=== PATIENT | female | born 1955 | race Caucasian/White ===

== ENCOUNTER 2023-10-19 11:56 | Outpatient (RCR) | payer MEDICARE, SELFPAY | END 2023-10-19 14:18 | disposition home or self-care (01) | LOC: RPT 11:56 | PROVIDERS: ATTENDING PHYSICIAN Orthopaedic Surgery Orthopaedic Surgery of the Spine; PRIMARYCARE PHYSICIAN Family Medicine | DX: M54.51 Vertebrogenic low back pain (principal) | CPT/HCPCS: 97010; 97110; 97112 ==

== ENCOUNTER → 2024-01-19 11:21 | Outpatient (REF) | payer MEDICARE, SELFPAY | LOC: HWRAD 11:21 | PROVIDERS: ATTENDING PHYSICIAN Obstetrics & Gynecology; FAMILY PHYSICIAN Family Medicine | DX: N95.0 Postmenopausal bleeding (principal) | CPT/HCPCS: 76830; 76856 ==

== ENCOUNTER → 2024-01-29 14:24 | Outpatient (REF) | payer MEDICARE, SELFPAY ==
[2024-01-29 10:28] LABS: ALT (SGPT) 29 U/L (0-35); AST (SGOT) 23 U/L (14-36); Albumin 4.1 g/dl (3.5-5.0); Alkaline Phosphatase 86 U/L (38-126); Blood Urea Nitrogen 20 mg/dl (7-17); Carbon Dioxide 26 mmol/L (22-30); Chloride 103 mmol/L (98-107); Glucose 224 mg/dl (70-99); Potassium 4.6 mmol/L (3.5-5.1); Sodium 139 mmol/L (135-145); Total Bilirubin 0.6 mg/dl (0.2-1.3); Total Protein 6.1 g/dl (6.3-8.2); eGFR 41.24
== END ==
LOC: OIDL 14:24
PROVIDERS: ATTENDING PHYSICIAN Internal Medicine Hematology & Oncology
DX: R93.7 Abnormal findings on diagnostic imaging of other parts of musculoskeletal system (principal)
CPT/HCPCS: 80053

== ENCOUNTER → 2024-02-26 07:05 | Outpatient (REF) | payer MEDICARE, SELFPAY | LOC: MRI 3T 07:05 | PROVIDERS: ATTENDING PHYSICIAN Physician Assistant Surgical; FAMILY PHYSICIAN Family Medicine | DX: M47.816 Spondylosis without myelopathy or radiculopathy, lumbar region (principal) | CPT/HCPCS: 72148 ==

== ENCOUNTER → 2024-07-28 11:25 | Outpatient (REF) | payer MEDICARE, SELFPAY ==
[2024-07-28 11:27] LABS: % Basophils 0.1 % (0-2); % Eosinophils 1.6 % (0-6); % Immature Granulocytes 0.2 % (0-0.5); % Lymphocytes 10.4 % (20.5-51.1); % Monocytes 6.8 % (1.7-9.3); % Neutrophils 80.9 % (42.2-75.2); Absolute Eosinophils 0.1 10^3/uL (0-0.7); Absolute Lymphocytes 0.8 10^3/uL (1.2-3.4); Absolute Monocytes 0.6 10^3/uL (0.1-0.6); Absolute Neutrophils 6.5 10^3/uL (1.4-6.5); Hematocrit 37.8 % (37.0-47.0); Hemoglobin 12.3 g/dL (12.0-16.0); Mean Corp Hgb Conc. 32.5 g/dL (33.0-37.0); Mean Corpuscular Hgb 29.6 pg (27.0-31.0); Mean Corpuscular Volume 91.1 fL (81.0-99.0); Mean Platelet Volume 9.1 fL (7.4-10.4); Platelet Count 172 10^3/uL (130-400); Red Blood Cell Count 4.15 10^6/uL (4.20-5.40); White Blood Cell Count 8.1 10^3/uL (4.8-10.8)
== END ==
LOC: OIDL 11:25
PROVIDERS: ATTENDING PHYSICIAN Internal Medicine Hematology & Oncology
DX: R93.7 Abnormal findings on diagnostic imaging of other parts of musculoskeletal system (principal); D63.1 Anemia in chronic kidney disease; C90.00 Multiple myeloma not having achieved remission
CPT/HCPCS: 85025

== ENCOUNTER → 2024-09-01 10:53 | Outpatient (REF) | payer MEDICARE, SELFPAY ==
[2024-09-01 11:57] LABS: % Basophils 0.3 % (0-2); % Eosinophils 1.2 % (0-6); % Immature Granulocytes 0.5 % (0-0.5); % Lymphocytes 11.6 % (20.5-51.1); % Monocytes 9.4 % (1.7-9.3); Absolute Eosinophils 0.1 10^3/uL (0-0.7); Absolute Lymphocytes 0.8 10^3/uL (1.2-3.4); Absolute Monocytes 0.6 10^3/uL (0.1-0.6); Absolute Neutrophils 5.1 10^3/uL (1.4-6.5); Hematocrit 40.2 % (37.0-47.0); Mean Corp Hgb Conc. 32.3 g/dL (33.0-37.0); Mean Corpuscular Hgb 28.7 pg (27.0-31.0); Mean Corpuscular Volume 88.7 fL (81.0-99.0); Mean Platelet Volume 9.5 fL (7.4-10.4); Nucleated Red Blood Cells % 0 %; Platelet Count 187 10^3/uL (130-400); Red Blood Cell Count 4.53 10^6/uL (4.20-5.40); Red Cell Dist. Width 14.4 % (11.5-14.5); White Blood Cell Count 6.6 10^3/uL (4.8-10.8)
[2024-09-01 12:34] LABS: ALT (SGPT) 25 U/L (0-35); AST (SGOT) 23 U/L (14-36); Albumin 4.4 g/dl (3.5-5.0); Alkaline Phosphatase 94 U/L (38-126); Blood Urea Nitrogen 23 mg/dl (7-17); Calcium 9.1 mg/dl (8.4-10.2); Carbon Dioxide 23 mmol/L (22-30); Chloride 102 mmol/L (98-107); Glucose 243 mg/dl (70-99); Potassium 4.9 mmol/L (3.5-5.1); Sodium 141 mmol/L (135-145); Total Bilirubin 0.4 mg/dl (0.2-1.3); Total Protein 6.6 g/dl (6.3-8.2); eGFR 45.07
== END ==
LOC: REG 10:53
PROVIDERS: ATTENDING PHYSICIAN Internal Medicine Hematology & Oncology; FAMILY PHYSICIAN Family Medicine
DX: R93.7 Abnormal findings on diagnostic imaging of other parts of musculoskeletal system (principal); D63.1 Anemia in chronic kidney disease; C90.00 Multiple myeloma not having achieved remission; D63.0 Anemia in neoplastic disease; D50.9 Iron deficiency anemia, unspecified; D80.1 Nonfamilial hypogammaglobulinemia; M87.88 Other osteonecrosis, other site
CPT/HCPCS: 36415; 80053; 85025

== ENCOUNTER → 2024-10-03 08:46 | Outpatient (REF) | payer MEDICARE, SELFPAY | LOC: WDC 08:46 | PROVIDERS: ATTENDING PHYSICIAN Obstetrics & Gynecology | DX: Z12.31 Encounter for screening mammogram for malignant neoplasm of breast (principal) | CPT/HCPCS: 77063; 77067 ==

== ENCOUNTER → 2024-11-11 10:31 | Outpatient (REF) | payer MEDICARE, SELFPAY | LOC: RAD 10:31 | PROVIDERS: ATTENDING PHYSICIAN Nurse Practitioner Adult Health; FAMILY PHYSICIAN Family Medicine | DX: R93.7 Abnormal findings on diagnostic imaging of other parts of musculoskeletal system (principal); D63.1 Anemia in chronic kidney disease; C90.00 Multiple myeloma not having achieved remission; D63.0 Anemia in neoplastic disease; D50.9 Iron deficiency anemia, unspecified; D80.1 Nonfamilial hypogammaglobulinemia; M87.88 Other osteonecrosis, other site | CPT/HCPCS: 71111 ==

== ENCOUNTER 2024-11-13 14:52 | Emergency (ER) | payer MEDICARE, SELFPAY ==
[2024-11-13 14:57] VITALS: BP 167/83
--- NOTE | 2024-11-13 18:54 | ED.GENMED ---
History of Present Illness
General
Chief Complaint: Musculo-Skeletal Complaint
Source: patient
Exam Limitations: none
Time Seen by Provider: 11/13/24 18:40
History of Present Illness
History of Present Illness:
69yoF with a history of multiple myeloma, hypertension, hyperlipidemia, and type 2 diabetes presenting for evaluation of rib pain. Patient had a fall 3 days ago in which she fell on a slope landing on her left ribcage. She denies any head strike or
LOC. Patient has been having ongoing L sided rib pain since then which is worse with movement, coughing, and breathing. She has been taking Tylenol and Aleve without much improvement. She had outpatient x-rays 2 days ago but has not received the
results yet. She denies any abdominal pain. She is on a baby aspirin daily.
Past History
Past History
ED Past Medical History: HTN
ED Past Surgical History:
Social History
Tobacco: Non-smoker
Alcohol: Occasional
Living: with family
Phy Exam
General Physical Exam
General Presentation: well appearing and no apparent distress
General age: appears stated age
General Skin: warm and dry
General Habitus: normal
General Mental: alert
ENT Exam
ENT Exam: normocephalic
Pulmonary Exam
Pulmonary Exam: lungs clear, no respiratory distress, no rales, no crackles, no rhonchi and other (+L lateral chest wall inferior to L breast. No skin changes or crepitus. Bilateral breath sounds equal. )
Gastrointestinal Exam
Gastrointestinal Exam: non tender, soft and non distended
Neurological Exam
Neurological Exam: alert
Karen Coma Scale
Eye Opening: Spontaneous
Verbal Response: Oriented
Motor Response: Obeys Commands
GCS Total Score: 15
Skin Exam
Skin Exam: normal color and warm/dry
Psychiatric Exam
Psychiatric Exam: normal mood/affect
Course
Orders/Labs/Results
Orders:
Orders
11/13/24 18:01
CR Ribs-left 3 Vw W/pa Chest Urgent
Comment:
Reason For Exam: rib pain, SOB
11/13/24 18:55
Incentive Spirometry [Rx Incentive Spirometry] [RESP] Urgent
Frequency: q1h while awake
Vital Signs
Initial and Last Documented VS:
Initial Vital Signs
Temp Pulse Resp BP Pulse Ox
98.7 F 110 20 167/83 98
11/13/24 14:57 11/13/24 14:57 11/13/24 14:57 11/13/24 14:57 11/13/24 14:57
Last Documented Vital Signs
Temp Pulse Resp BP Pulse Ox
98.7 F 110 20 167/83 98
11/13/24 14:57 11/13/24 14:57 11/13/24 14:57 11/13/24 14:57 11/13/24 14:57
MDM/Problems Addressed
Differential Diagnosis Includes:
69yoF here with L rib pain after a fall 3 days ago. Pain is worse with coughing/breathing/movement. Had outpatient x-rays 2 days ago which showed 'Suspect nondisplaced fractures of the posterolateral left fifth and sixth ribs.' Oxygen saturation 98%
on room air. There is rib tenderness on exam without crepitus or skin changes. Breath sounds equal bilaterally. No abdominal tenderness noted. Differential diagnosis includes rib fracture, rib contusion, doubt pneumothorax
X-rays repeated today which again show nondisplaced fractures of the L 5th and 6th ribs. No evidence of pneumothorax or hemothorax on imaging. Supportive care discussed including multimodal pain control and incentive spirometry. Patient is on
oxycodone chronically which she is able to use PRN. Advised close f/u with PCP. Patient in agreement with plan and was discharged in stable condition.
*Critical Care Note
Total Time (30-74mins, 75-104mins- exclusive of procedures): Not Applicable
ED Attending Note
-
Portions of this chart may have been created with voice recognition software.� Occasional wrong word or��sound alike� substitutions may have occurred due to the inherent limitations of voice recognition software.
Discharge Plan
Departure
Patient Disposition: Home (Routine Discharge)
Date of Disposition: 11/13/24
Time of Disposition: 18:56
Patient with high blood pressure during this ER visit?: Yes
Discharge Problem:
Multiple fractures of ribs of left side
Instructions: Rib fracture or bruised rib - ED discharge instructions
Prescriptions:
No Action
atorvastatin 20 MG tablet
20 mg PO DAILY
sertraline 100 MG tablet
200 mg PO DAILY
glipizide 5 MG tablet extended release 24hr
10 mg PO DAILY
aspirin 81 MG tablet,chewable
81 mg PO DAILY
bupropion HCl 150 MG tablet extended release 24 hr
150 mg PO DAILY
acyclovir 400 MG tablet
400 mg PO BID
oxycodone 5 MG tablet
5 mg PO Q4HPRN PRN (Reason: pain)
metoprolol tartrate 25 MG tablet
25 mg PO DAILY
cyanocobalamin (vitamin B-12) 1,000 MCG tablet
1,000 mcg PO DAILY
amlodipine 5 MG tablet
7.5 mg PO DAILY
fluticasone propionate 1 SPRAY spray,suspension
1 spray intranasal DAILY
Referrals:
Ramón Orantes MD [Family Provider] -
Activity Restrictions/Additional Instructions:
Apply lidocaine patches daily (12 hours on, 12 hours off). Take Tylenol 650mg every 6 hours as needed. Take oxycodone for breakthrough pain.
Use incentive spirometer every hour while awake.
Please follow-up with your family doctor. Return to the ER with any new or worsening symptoms.
Interventions
Interventions:
*Risk Screen - Suicide Last Done: 11/13/24 14:57
*General Assessment Last Done: 11/13/24 14:57
*Neglect/Abuse Screening Last Done: 11/13/24 14:57
*Nursing Disposition Last Done: 11/13/24 19:22
ED-Musculoskeletal Assessment Last Done: 11/13/24 18:30
Discharge Date and Time
Discharge Date/Time: 11/13/24 19:22
Print Language: INDONESIAN
== END 2024-11-13 19:22 | disposition home or self-care (01) ==
LOC: EMR 14:52
PROVIDERS: EMERGENCY PHYSICIAN Emergency Medicine; FAMILY PHYSICIAN Family Medicine
DX: S22.42XA Multiple fractures of ribs, left side, initial encounter for closed fracture (principal); W10.2XXA Fall (on)(from) incline, initial encounter; I10 Essential (primary) hypertension; E78.5 Hyperlipidemia, unspecified; E11.9 Type 2 diabetes mellitus without complications; Z79.82 Long term (current) use of aspirin
CPT/HCPCS: 99283; 71101

== ENCOUNTER 2025-05-08 08:35 | Outpatient (RCR) | payer MEDICARE, SELFPAY | END 2025-05-08 23:59 | disposition home or self-care (01) | LOC: RPT 08:35 | PROVIDERS: ATTENDING PHYSICIAN Orthopaedic Surgery; FAMILY PHYSICIAN Family Medicine | DX: S46.811D Strain of other muscles, fascia and tendons at shoulder and upper arm level, right arm, subsequent encounter (principal); Z73.6 Limitation of activities due to disability; M25.522 Pain in left elbow | CPT/HCPCS: 97112; 97162 ==

== ENCOUNTER 2025-06-07 11:41 | Outpatient (RCR) | payer MEDICARE, SELFPAY | END 2025-06-07 23:59 | disposition home or self-care (01) | LOC: RPT 11:41 | PROVIDERS: ATTENDING PHYSICIAN Orthopaedic Surgery; FAMILY PHYSICIAN Family Medicine | DX: S46.811D Strain of other muscles, fascia and tendons at shoulder and upper arm level, right arm, subsequent encounter (principal); Z73.6 Limitation of activities due to disability; M62.81 Muscle weakness (generalized) | CPT/HCPCS: 97010; 97110; 97112; 97140 ==

== ENCOUNTER 2025-06-12 10:33 | Outpatient (RCR) | payer MEDICARE, SELFPAY | END 2025-06-12 23:59 | disposition home or self-care (01) | LOC: RPT 10:33 | PROVIDERS: ATTENDING PHYSICIAN Orthopaedic Surgery; FAMILY PHYSICIAN Family Medicine | DX: S46.811D Strain of other muscles, fascia and tendons at shoulder and upper arm level, right arm, subsequent encounter (principal); Z73.6 Limitation of activities due to disability | CPT/HCPCS: 97110 ==

== ENCOUNTER → 2025-07-20 10:17 | Outpatient (REF) | payer MEDICARE, SELFPAY | LOC: HWRAD 10:17 | PROVIDERS: ATTENDING PHYSICIAN Obstetrics & Gynecology; FAMILY PHYSICIAN Family Medicine | DX: N95.0 Postmenopausal bleeding (principal) | CPT/HCPCS: 76830; 76856 ==

== ENCOUNTER → 2025-07-25 16:15 | Outpatient (REF) | payer MEDICARE, SELFPAY ==
[2025-07-25 11:03] LABS: Hematocrit 29.4 % (37.0-47.0); Hemoglobin 9.1 g/dL (12.0-16.0); Mean Corp Hgb Conc. 31.0 g/dL (33.0-37.0); Mean Corpuscular Volume 87.5 fL (81.0-99.0); Platelet Count 229 10^3/uL (130-400); Red Cell Dist. Width 14.4 % (11.5-14.5)
== END ==
LOC: OIDL 16:15
PROVIDERS: ATTENDING PHYSICIAN Nurse Practitioner Primary Care
DX: R93.7 Abnormal findings on diagnostic imaging of other parts of musculoskeletal system (principal); D63.1 Anemia in chronic kidney disease; C90.00 Multiple myeloma not having achieved remission; D63.0 Anemia in neoplastic disease; D50.9 Iron deficiency anemia, unspecified; D80.1 Nonfamilial hypogammaglobulinemia; M87.88 Other osteonecrosis, other site
CPT/HCPCS: 85025

== ENCOUNTER → 2025-10-04 06:40 | Outpatient (REF) | payer MEDICARE, SELFPAY | LOC: WDC 06:40 | PROVIDERS: ATTENDING PHYSICIAN Obstetrics & Gynecology | DX: Z12.31 Encounter for screening mammogram for malignant neoplasm of breast (principal) | CPT/HCPCS: 77063; 77067 ==

== ENCOUNTER 2025-11-07 10:01 | Emergency (ER) | payer MEDICARE, SELFPAY ==
[2025-11-07 10:07] VITALS: BP 141/80
[2025-11-07 10:39] LABS: COVID-19 Antigen Negative (Negative)
--- NOTE | 2025-11-07 12:18 | ED.GENMED ---
History of Present Illness
General
Chief Complaint: Head Injury
Source: patient and spouse
Exam Limitations: none
Time Seen by Provider: 11/07/25 11:18
Nursing documentation reviewed up to this point in time: agreed with
History of Present Illness
History of Present Illness:
70-year-old female with a past medical history of hypertension, hyperlipidemia, diabetes who presents to the ER with her for evaluation after fall. Patient recently returned from vacation to [place] to visit her family for the holidays.
They got in late last night and when she got out of the car she felt mildly lightheaded and lost her balance, fell backwards and hit the back of her head. She is quite clear that she did not pass out. She says she did not sustain any other
injuries aside from minor abrasion to the hand�denies any headache, neck pain, back pain or rib pain, pain in extremities. She disclosed fall to her primary doctor who recommended she come to the ER today. She denies any associated chest pain,
palpitations, shortness of breath with her lightheadedness and denies feeling lightheaded today. She does note that she has had URI symptoms/cough for the past few days�apparently her son was sick with influenza while they were visiting. Patient
is on aspirin, no other blood thinners.
Past History
Past History
ED Past Medical History: HTN
ED Past Surgical History:
Social History
Tobacco: Non-smoker
Alcohol: Occasional
Living: with family
Review of Systems
Review of Systems
All Other Systems: ROS reviewed and negative except as documented in HPI and ROS
Constitutional: Reports fatigue; Denies fever or chills
EENT: Denies sore throat
Respiratory: Reports cough; Denies trouble breathing
Cardiac: Denies chest pain or palpitations
ABD/GI: Denies abdominal pain, nausea or vomiting
: Denies flank pain
Musculoskeletal: Denies joint pain, neck pain or back pain
Neurological: Reports dizzy; Denies headache
Phy Exam
Physical Exam
Physical Exam:
General: Awake, alert, oriented x3; no acute distress
Head: Normocephalic, atraumatic
Eyes: Conjunctiva normal, EOMI, pupils equal round reactive to light bilaterally
Throat: Airway intact, handling secretions, tongue atraumatic
Neck: Trachea midline, no cervical spine tenderness, good range of motion without pain
Lungs: Clear to auscultation bilaterally, no wheezing, rales, rhonchi; occasional cough
Heart: Regular rate and rhythm, no murmurs, gallops, or rubs appreciated; no chest wall tenderness
Abd: Soft, non distended, nontender
Neuro: Grossly intact, ambulatory
Skin: Warm and dry, minor abrasion to the lateral right hand
Extremities: Abrasion to the hand but otherwise atraumatic, no tenderness extremities freely without pain; extremities are warm and well-perfused
Scores
Heart Failure Risk
Heart Failure Risk Score: Not Applicable
Heart Score for Chest Pain Patients
STEMI patient?: Not applicable
Withdrawal Assessment of Alcohol
Withdrawal Assessment Completed?: Not applicable
Course
Orders/Labs/Results
Orders:
Orders
11/07/25 10:12
COVID-19 Antigen Urgent
Source: Nasal Swab
INF RAPID [Influenza A+B Rapid Molecular] Urgent
EVA Source: Nasal Swab
Specimen Description:
11/07/25 11:38
CT Head W/o Iv Contrast Urgent
Comment:
Reason For Exam: slip and fall with occipital head strike
11/07/25 11:53
Electrocardiogram (*1) Urgent
Reason for Study: Vertigo / Dizzy
EKG- Treatment ONCE
11/07/25 12:34
Complete Blood Count/With Diff Urgent
Comprehensive Metabolic Panel Urgent
Abnormal Lab Results
11/07/25
12:34
MCHC 31.7 L g/dL
(33.0-37.0)
RDW 15.5 H %
(11.5-14.5)
Absolute Neuts (auto) 8.8 H 10^3/uL
(1.4-6.5)
Absolute Lymphs (auto) 0.7 L 10^3/uL
(1.2-3.4)
Absolute Monos (auto) 0.9 H 10^3/uL
(0.1-0.6)
Neutrophils % 83.8 H %
(42.2-75.2)
Lymphocytes % 6.2 L %
(20.5-51.1)
BUN 19 H mg/dl
(7-17)
Creatinine 1.1 H mg/dL
(0.6-1.0)
Glucose 188 H mg/dl
(70-99)
Total Protein 5.9 L g/dl
(6.3-8.2)
11/07/25 12:34
11/07/25 12:34
Vital Signs
Initial and Last Documented VS:
Initial Vital Signs
Temp Pulse Resp BP Pulse Ox
37.3 C 92 20 141/80 96
11/07/25 10:07 11/07/25 10:07 11/07/25 10:07 11/07/25 10:07 11/07/25 10:07
Last Documented Vital Signs
Temp Pulse Resp BP Pulse Ox
37.3 C 92 20 141/80 96
11/07/25 10:07 11/07/25 10:07 11/07/25 10:07 11/07/25 10:07 11/07/25 12:24
MDM/Problems Addressed
Differential Diagnosis Includes:
Fall with head strike: Must rule out subdural/subarachnoid
Lightheadedness: Vasovagal, orthostasis, anemia, dysrhythmia
Mild cough: URI, nothing to suggest pneumonia at this point
MDM/Problems Addressed:
70-year-old female presents for evaluation primarily of a fall with head strike that she reports that she got in a car after returning home from visiting her family and felt mildly lightheaded but did not pass out; she normally has balance issues
and because of her lightheadedness she lost her balance and hit the back of her head. No serious injuries. On aspirin but no other blood thinners. She feels well today. Her primary doctor recommended she come to the ER to be evaluated. Her
vital signs here are normal. Exam is as above. Regarding the trauma�given her age will check CT to head although low suspicion clinically for serious intracranial pathology. She has no other serious injuries only minor abrasion to the hand.
Regarding episode of lightheadedness�it sounds like this was likely some orthostasis after prolonged car ride. Must always consider PE after long travel with syncope/presyncope however she has no chest pain or shortness of breath, no tachypnea, no
tachycardia, no hypoxia, no signs clinically of DVT�at this point nothing to suggest that this was a PE. Will check an EKG and some basic labs to rule out any signs of arrhythmia, anemia, electrolyte abnormalities. Reassess after the above.
Labs reviewed: CBC and CMP no clinically significant abnormalities�stable CKD and elevated sugar random in the setting of known diabetes. Viral swabs negative. CT head no acute abnormalities. EKG shows sinus rhythm. Her vital signs are stable
she remains well-appearing without symptoms here. Stable for discharge can follow-up with her primary care physician. All questions answered.
*Radiology
Radiology exam reviewed: radiology read reviewed
*Pulse Oximetry
SaO2: 96
Oxygen Mode of Delivery: Room air
Patient hypoxic: no (96%)
*EKG
Interpreted by ED Provider?: Yes
Heart Rate: 92
Rate: normal
Rhythm: sinus
[place]: normal axis
Interval: normal interval
QRS Pattern: normal QRS
Ischemia: no ischemia
*Critical Care Note
Total Time (30-74mins, 75-104mins- exclusive of procedures): Not Applicable
Data Reviewed
Source: patient, records and spouse
ED Attending Note
-
Portions of this chart may have been created with voice recognition software.� Occasional wrong word or��sound alike� substitutions may have occurred due to the inherent limitations of voice recognition software.
Discharge Plan
Departure
Patient Disposition: Home (Routine Discharge)
Date of Disposition: 11/07/25
Time of Disposition: 14:06
Patient with high blood pressure during this ER visit?: Yes
Discharge Problem:
Lightheadedness, Minor head injury
Instructions: Head Injury in Adults (DC), Dizziness in adults - ED (DC)
Prescriptions:
No Action
atorvastatin 20 MG tablet
20 mg PO DAILY
sertraline 100 MG tablet
200 mg PO DAILY
glipizide 5 MG tablet extended release 24hr
10 mg PO DAILY
aspirin 81 MG tablet,chewable
81 mg PO DAILY
bupropion HCl 150 MG tablet extended release 24 hr
150 mg PO DAILY
acyclovir 400 MG tablet
400 mg PO BID
oxycodone 5 MG tablet
5 mg PO Q4HPRN PRN (Reason: pain)
metoprolol tartrate 25 MG tablet
25 mg PO DAILY
cyanocobalamin (vitamin B-12) 1,000 MCG tablet
1,000 mcg PO DAILY
amlodipine 5 MG tablet
7.5 mg PO DAILY
fluticasone propionate 1 SPRAY spray,suspension
1 spray intranasal DAILY
Referrals:
Ramón Orantes MD [Family Provider, Family Practice] - Follow up in 1 week
Activity Restrictions/Additional Instructions:
Thank you for visiting the Emergency Department at [facility].
1. Please schedule a follow up appointment as directed. Call first thing tomorrow morning to make an appointment.
2. If indicated, please take your medications as instructed and indicated on discharge paperwork.
3. If any of your symptoms do not improve, or persist, or become more severe within 6-12 hours, please return to the emergency department for further care.
4. Please return to the emergency department if you develop a headache, neck pain/stiffness, fever greater than 100.4F, chest pain, shortness of breath, persistent nausea, vomiting, slurred speech, difficulty walking, numbness/tingling, weakness,
signs of infection or any other symptoms that are worrisome to you.
Please call [phone] if you have any questions.
Interventions
Interventions:
*General Assessment Last Done: 11/07/25 12:46
*Neglect/Abuse Screening Last Done: 11/07/25 10:07
*ED COVID-19 Vaccine History Last Done: 11/07/25 12:45
*ED Influenza Vaccine History Last Done: 11/07/25 12:45
[facility] Risk Assessment Tool Last Done: 11/07/25 12:46
*Risk Screen - Suicide (C-SSRS) Last Done: 11/07/25 10:07
ED- Neurological Assessment Last Done: 11/07/25 12:45
ED-Skin Assessment Last Done: 11/07/25 12:46
Discharge Date and Time
Print Language: [id number]
[2025-11-07 12:48] LABS: Hematocrit 37.8 % (37.0-47.0); Hemoglobin 12.0 g/dL (12.0-16.0); Mean Corp Hgb Conc. 31.7 g/dL (33.0-37.0); Mean Corpuscular Volume 88.7 fL (81.0-99.0); Nucleated Red Blood Cells % 0 %; Platelet Count 154 10^3/uL (130-400); Red Cell Dist. Width 15.5 % (11.5-14.5)
[2025-11-07 13:12] LABS: ALT (SGPT) 18 U/L (0-35); AST (SGOT) 16 U/L (14-36); Albumin 3.8 g/dl (3.5-5.0); Alkaline Phosphatase 84 U/L (38-126); Blood Urea Nitrogen 19 mg/dl (7-17); Calcium 8.9 mg/dl (8.4-10.2); Carbon Dioxide 27 mmol/L (22-30); Chloride 104 mmol/L (98-107); Glucose 188 mg/dl (70-99); Potassium 4.4 mmol/L (3.5-5.1); Sodium 136 mmol/L (135-145); Total Protein 5.9 g/dl (6.3-8.2); eGFR 54.73
== END 2025-11-07 14:55 | disposition home or self-care (01) ==
LOC: EMR 10:01
PROVIDERS: Emergency Medicine; EMERGENCY PHYSICIAN Emergency Medicine; FAMILY PHYSICIAN Family Medicine
DX: S09.90XA Unspecified injury of head, initial encounter (principal); W18.39XA Other fall on same level, initial encounter; R42 Dizziness and giddiness; I10 Essential (primary) hypertension; E78.5 Hyperlipidemia, unspecified; E11.9 Type 2 diabetes mellitus without complications; Z79.82 Long term (current) use of aspirin
CPT/HCPCS: 99284; 36415; 70450; 80053; 85025; 87502; 87811; 93005